=== PATIENT | female | born 1950 | race Caucasian/White ===

== ENCOUNTER 2018-07-29 15:21 | Inpatient (IN) | END 2018-07-30 16:30 | disposition home or self-care (01) | DRG 690 ==

== ENCOUNTER 2018-11-07 09:36 | Observation (INO) | payer MEDICARE ==
[~2018-11-07] VITALS: Ht 144.8 cm; Wt 42.2 kg
[~2018-11-07 09:36] MED LIST: AMLO5TAB4 PO; CIPR500T4 PO; THIA100T10 PO
[2018-11-07] MEDS ORDERED: ALBUTEROL/IPRATROPIUM (NEB) 3 ML AMP HHN STA (09:53)
--- NOTE | 2018-11-07 12:21 | ERD ---
ER Documentation Chief Complaint Chief Complaint sob, [facility] 1 resp tx in field HPI 68-year-old female brought to the emergency department by paramedics for shortness of breath. Patient is an unfortunate homeless 68-year-old female who lives in her car. She was recently hospitalized for COPD exacerbation and shortness of breath. She was discharged from the hospital yesterday but continued to feel short of breath. When she continued to feel short of breath to call the paramedics. I have reviewed the rope cleaner pre-hospital care. Pre-hospital vital signs were reviewed. Pre-hospital diagnostic tests were reviewed. Upon arrival, patient reports no chest pain, fevers, sputum production ROS All systems reviewed and are negative except as per history of present illness. Medications Home Meds Discontinued Scripts Amlodipine Besylate* (Norvasc*) 5 Mg Tablet, 5 MG PO DAILY, #30 TAB Prov:FERRER,BRETT V. BARREL LATHE OPERATOR 07/30/18 Thiamine* (Thiamine*) 100 Mg Tablet, 100 MG PO DAILY, #30 TAB Prov:FERRER,BRETT V. BARREL LATHE OPERATOR 07/30/18 Ciprofloxacin Hcl* (Ciprofloxacin Hcl*) 500 Mg Tablet, 500 MG PO BID for 5 Days, #10 TAB Prov:FERRER,BRETT V. BARREL LATHE OPERATOR 07/30/18 Allergies Allergies: Coded Allergies: Egg Derived (Verified Allergy, Unknown, 07/27/18) egg (Verified Allergy, Unknown, 07/27/18) tomato (Verified Allergy, Unknown, 07/27/18) PMhx/Soc History of Surgery: Yes (liver lac, ovarian cyst) Anesthesia Reaction: No Hx Neurological Disorder: No Hx Respiratory Disorders: Yes (copd) Hx Cardiac Disorders: Yes (htn) Hx Psychiatric Problems: No Hx Miscellaneous Medical Probl: No Hx Alcohol Use: Yes Hx Substance Use: No Hx Tobacco Use: Yes Smoking Status: Current some day smoker FmHx Contributory for chief complaint Physical Exam Vitals Vital Signs Date Temp Pulse Resp B/P (MAP) Pulse Ox O2 O2 Flow FiO2 Time Delivery Rate 11/07/18 98 Room Air 11:21 11/07/18 98.2 72 20 162/74 97 10:08 (103) 11/07/18 75 18 97 21 10:02 Physical Exam GENERAL: Frail, elderly female HEENT: Pupils equal, round, and reactive to light. EOMI. There is no scleral icterus. NECK: C-spine is soft and supple, there is no meningismus. There is no cervical lymphadenopathy. LUNGS: Wheezing bilaterally. Mild tachypnea no retractions HEART: Regular rate and rhythm, no murmurs, clicks, rubs or gallops. ABDOMEN: Soft, non-tender, non-distended. There are bowel sounds in all four quadrants. No rebound or guarding. EXTREMITIES: There is no peripheral cyanosis or edema. No focal swelling or erythema. NEURO: The patient moves all four extremities with 5/5 strength. Cranial nerves II - XII are intact. Normal gait. Alert and oriented SKIN: There is no apparent rash or petechiae. HEME/LYMPHATIC: There is no evidence of excessive bruising or lymphedema. PSYCHIATRIC: The patient does not appear anxious or depressed. Result Diagram: 11/07/18 0840 11/07/18 0840 Results 24 hrs Laboratory Tests Test 11/07/18 08:40 11/07/18 10:50 White Blood Count 15.3 10^3/ul Red Blood Count 4.46 10^6/ul Hemoglobin 13.6 g/dl Hematocrit 41.6 % Mean Corpuscular Volume 93.3 fl Mean Corpuscular Hemoglobin 30.5 pg Mean Corpuscular Hemoglobin Concent 32.7 g/dl Red Cell Distribution Width 13.1 % Platelet Count 309 10^3/UL Mean Platelet Volume 9.9 fl Immature Granulocytes % 1.000 % Neutrophils % 70.6 % Lymphocytes % 20.4 % Monocytes % 7.0 % Eosinophils % 0.9 % Basophils % 0.1 % Nucleated Red Blood Cells % 0.0 /100WBC Immature Granulocytes # 0.160 10^3/ul Neutrophils # 10.8 10^3/ul Lymphocytes # 3.1 10^3/ul Monocytes # 1.1 10^3/ul Eosinophils # 0.1 10^3/ul Basophils # 0.0 10^3/ul Nucleated Red Blood Cells # 0.0 10^3/ul Urine Color STRAW Urine Clarity CLEAR Urine pH 5.0 Urine Specific Price 1.009 Urine Ketones NEGATIVE mg/dL Urine Nitrite NEGATIVE mg/dL Urine Bilirubin NEGATIVE mg/dL Urine Urobilinogen NEGATIVE mg/dL Urine Leukocyte Esterase NEGATIVE Dequan/ul Urine Microscopic RBC 1 /HPF Urine Microscopic WBC 0 /HPF Urine Bacteria FEW /HPF Urine Hemoglobin NEGATIVE mg/dL Urine Glucose NEGATIVE mg/dL Urine Total Protein 1+ mg/dl Sodium Level 140 mmol/L Potassium Level 4.0 mmol/L Chloride Level 107 mmol/L Carbon Dioxide Level 23 mmol/L Anion Gap 10 Blood Urea Nitrogen 47 mg/dl Creatinine 1.11 mg/dl Est Glomerular Filtrat Rate mL/min 49 mL/min Glucose Level 90 mg/dl Calcium Level 9.2 mg/dl Total Bilirubin 0.2 mg/dl Direct Bilirubin 0.00 mg/dl Indirect Bilirubin 0.2 mg/dl Aspartate Amino Transf (AST/SGOT) 82 IU/L Alanine Aminotransferase (ALT/SGPT) 73 IU/L Alkaline Phosphatase 90 IU/L Troponin I 0.026 ng/ml B-Type Natriuretic Peptide 2170 PG/ML Total Protein 7.3 g/dl Albumin 4.2 g/dl Globulin 3.10 g/dl Albumin/Globulin Ratio 1.35 POC Venous Lactate 1.2 mmol/L Current Medications Medications Dose Sig/[place] Start Time Status Last (Trade) Ordered Route PRN Stop Time Admin Dose Reason Admin Albuterol/ 3 ml ONCE STAT 11/07/18 DC 11/07/18 Ipratropium HHN 09:53 11/07/18 10:01 (Duoneb) 09:54 Procedures/MDM Patient was taken to a room, seen and evaluated. Comfort measures were initiated. Diagnostic tests were ordered and reviewed. 3 LEAD RHYTHM STRIP: Normal sinus rhythm without ectopy EK lead EKG reviewed by myself: Normal Sinus Rhythm Normal [place] and intervals No ST elevation, depression, or T wave inversion. Nonspecific ST and T wave changes without ST elevation Impression: Nonspecific EKG RADIOLOGY: Reviewed with the radiologist CONSULTATION: Hospitalist was notified for admission REEVALUATION: Breathing treatments, her wheezing improved. Diagnostic tests were evaluated and discussed with her and arrangements were made for admission MEDICAL DECISION MAKIN-year-old female presents the emergency department with continued shortness of breath despite recent inpatient care. Given her lack of outpatient follow-up, her inability to take care of this is an outpatient after her previous hospitalization and her homeless status, she will be admitted to the hospital for supportive measures further bronchodilator treatment further evaluation. She will require social media content manager intervention as well. Departure Diagnosis: Primary Impression: COPD exacerbation Condition: SALUD Schultz Nov 07, 2018 12:20
[2018-11-07 14:44] VITALS: BP 150/68; PULSE 74; RESP 18
--- NOTE | 2018-11-07 14:44 | HP ---
Date/Time of Note Date/Time of Note DATE: 11/07/18 TIME: 14:39 Assessment/Plan VTE Prophylaxis SCD applied (from Nsg): Yes Pharmacological prophylaxis: NA/contraindicated Pharm contraindication: low risk/ambulating Lines/Catheters IV Catheter Type (from Nrsg): Saline Lock Assessment/Plan Hospital Course SUBJECTIVE: Lying in bed. On room air, no respiratory distress. No cough. OBJECTIVE: Vital signs-see below PHYSICAL EXAM: Constitutional: Well-developed, adequately built, lying in bed comfortably. Psych: nl mood/affect, no complaints Head: atraumatic, normocephalic Eyes: nl conjunctiva, nl sclera ENMT: mucosa pink and moist, nl external ears & nose Neck: non-tender, supple Respiratory: clear to auscultation, normal air movement Cardiovascular: nl pulses, regular rate and rhythm Gastrointestinal: non-tender, soft, bowel sounds active in all 4 quadrants. Musculoskeletal/extremities: nl extremities to inspection, motor strength equal bilaterally, no focal deficit. Normal pulses,no cyanosis, no edema. Neurological: Alert oriented 3,nl speech, nl strength Skin: nl turgor ASSESSMENT/PLAN: 68-year-old homeless female with a history of hypertension, COPD, current every day smoking, who was apparently discharged from outside hospital yesterday after treated for COPD, presented to our ER stating she has not felt any better with her cough or breathing. 1. Upper respiratory infection -Clinically stable. -We will treat with p.o. Levaquin, bronchodilators. 2. COPD -Currently stable. -We will treat with [id number] bronchodilators, PO prednisone short course (wheezes+carl), supplemental oxygen if indicated. -Counseled on smoking cessation 3. Leukocytosis likely secondary to #1 versus possible steroid induced as she may had received steroids in the other facility for copd tx. -Again, patient will be treated with a fluoroquinolone. 4. Hypertension -Last time patient was discharged on amlodipine which we will continue. 5. Tobacco use -Counseled on cessation 6. Homelessness -landing worker to see patient. 7. Alcoholic liver cirrhosis. -No acute issues. DVT prophylaxis: SCDs PUD prophylaxis: Not indicated Diet: Regular CODE STATUS: Full code Rest of the management depend on hospital course. Approximately 60 m spent on this history and physical. Patient has an evaluation with Result Diagram: 11/07/18 0840 11/07/18 0840 Results 24hrs Laboratory Tests Test 11/07/18 08:40 11/07/18 10:50 White Blood Count 15.3 #H Red Blood Count 4.46 Hemoglobin 13.6 Hematocrit 41.6 Mean Corpuscular Volume 93.3 Mean Corpuscular Hemoglobin 30.5 Mean Corpuscular Hemoglobin Concent 32.7 Red Cell Distribution Width 13.1 Platelet Count 309 # Mean Platelet Volume 9.9 Immature Granulocytes % 1.000 H Neutrophils % 70.6 Lymphocytes % 20.4 Monocytes % 7.0 Eosinophils % 0.9 Basophils % 0.1 Nucleated Red Blood Cells % 0.0 Immature Granulocytes # 0.160 H Neutrophils # 10.8 H Lymphocytes # 3.1 H Monocytes # 1.1 H Eosinophils # 0.1 Basophils # 0.0 Nucleated Red Blood Cells # 0.0 Urine Color STRAW Urine Clarity CLEAR Urine pH 5.0 Urine Specific Sebastian 1.009 Urine Ketones NEGATIVE Urine Nitrite NEGATIVE Urine Bilirubin NEGATIVE Urine Urobilinogen NEGATIVE Urine Leukocyte Esterase NEGATIVE Urine Microscopic RBC 1 Urine Microscopic WBC 0 Urine Bacteria FEW A Urine Hemoglobin NEGATIVE Urine Glucose NEGATIVE Urine Total Protein 1+ H Sodium Level 140 Potassium Level 4.0 Chloride Level 107 Carbon Dioxide Level 23 Anion Gap 10 Blood Urea Nitrogen 47 H Creatinine 1.11 H Est Glomerular Filtrat Rate mL/min 49 L Glucose Level 90 Calcium Level 9.2 Total Bilirubin 0.2 Direct Bilirubin 0.00 Indirect Bilirubin 0.2 Aspartate Amino Transf (AST/SGOT) 82 H Alanine Aminotransferase (ALT/SGPT) 73 H Alkaline Phosphatase 90 Troponin I 0.026 B-Type Natriuretic Peptide 2170 H Total Protein 7.3 Albumin 4.2 Globulin 3.10 Albumin/Globulin Ratio 1.35 POC Venous Lactate 1.2 HPI/ROS Admit Date/Time Admit Date/Time Nov 07, 2018 at 12:34 Hx of Present Illness This is a 68-year-old homeless female with a history of tobacco use, alcoholic liver cirrhosis, hypertension, COPD, who was apparently discharged from outside hospital yesterday where she was treated for COPD, came to [facility] ER room via ambulance stating that she still feels short of breath and cough. Patient denies chest pain, palpitation, nausea, vomiting, diaphoresis, numbness, tingling, hemoptysis, loss of consciousness, dizziness, speech difficulties, vision changes, fever, chills, diarrhea or other constitutional symptoms. In the emergency room, initial labs showed white count 15,300, creatinine 1.11. Vital signs with blood pressure 162/74. Chest x-ray showed no evidence of infiltrates or any acute disease. In ER, patient was given DuoNeb and was admitted. ROS A 12 point review of system was assessed and is negative other than what is mentioned in the HPI. PMH/Family/Social Past Medical History See HPI Medications Current Medications IV Flush (NS 3 ml) 3 ml PER PROTOCOL IV ; Start 11/07/18 at 15:00; Status UNV Ondansetron HCl (Zofran Inj) 4 mg Q6H PRN IV NAUSEA/VOMITING; Start 11/07/18 at 15:00; Status UNV Acetaminophen (Tylenol Tab) 650 mg Q6H PRN PO .PAIN 1-3 OR TEMP; Start 11/07/18 at 15:00; Status UNV Levofloxacin (Levaquin) 500 mg DAILY@06 PO ; Start 11/07/18 at 15:00; Status UNV Albuterol/ Ipratropium (Duoneb) 3 ml Q4HWA RESP THERAPY HHN ; Start 11/07/18 at 17:00; Status UNV Guaifenesin/ Codeine Phosphate (Robitussin Ac Liquid Cup) 10 ml Q4H PRN PO cough; Start 11/07/18 at 15:00; Status UNV Coded Allergies: Egg Derived (Verified Allergy, Unknown, 11/07/18) egg (Verified Allergy, Unknown, 11/07/18) tomato (Verified Allergy, Unknown, 11/07/18) Past Surgical History Noncontributory Family History Significant Family History: no pertinent family hx Social History Current every day smoker. Drinks 1 glass of wine every night. Denied illicit drug use. Smoking Status: Current some day smoker Exam/Review of Systems Vital Signs Vitals Vital Signs Date Temp Pulse Resp B/P (MAP) Pulse Ox O2 O2 Flow FiO2 Time Delivery Rate 11/07/18 98.2 55 20 149/74 99 Room Air 13:54 (99) 11/07/18 21 10:02 BRETT FERRER NP Nov 07, 2018 14:44
[2018-11-07 14:45] VITALS: Ht 144.8 cm; Wt 42.2 kg
[2018-11-07] MEDS ORDERED: NACL 0.9% 3 ML SYG IV SCH (15:00)
[2018-11-07] MEDS ORDERED: ACETAMINOPHEN 325 MG TAB PO PRN (15:00)
[2018-11-07] MEDS ORDERED: GUAIFENESIN/CODEINE 5ML CUP PO PRN (15:00)
[2018-11-07] MEDS ORDERED: ONDANSETRON 4 MG INJ IV PRN (15:00)
[2018-11-07] MEDS: predniSONE 20 MG TAB PO SCH (17:08)
[2018-11-07] MEDS: LEVOFLOXACIN 500 MG TAB PO SCH (17:08)
[2018-11-07] MEDS: ALBUTEROL/IPRATROPIUM (NEB) 3 ML AMP HHN SCH ×2 (17:10→21:49)
[2018-11-07 17:39] VITALS: BP 135/62; PULSE 58; RESP 18
[2018-11-07 19:39] VITALS: BP 138/64; PULSE 80; RESP 18
[2018-11-08 01:41] VITALS: BP 158/79; PULSE 96; RESP 18
[2018-11-08] MEDS: LEVOFLOXACIN 500 MG TAB PO SCH (06:16)
[2018-11-08 07:43] VITALS: BP 150/72; PULSE 75; RESP 18
[2018-11-08] MEDS: predniSONE 20 MG TAB PO SCH (08:18)
[2018-11-08] MEDS: ALBUTEROL/IPRATROPIUM (NEB) 3 ML AMP HHN SCH ×2 (09:36→13:08)
--- NOTE | 2018-11-08 11:08 | PDOCDIS ---
Discharge Instructions CONDITION [id number] Patient Condition: [id number] Stable HOME CARE INSTRUCTIONS: [id number] Diet Instructions: [id number] Regular FOLLOW UP/APPOINTMENTS Follow-up Plan With primary care physician in 1 week. You need to check your kidney function in 1 week. BRETT FERRER NP Nov 08, 2018 11:08
[2018-11-08] MEDS ORDERED: TIOT18CA INHALATION (11:10)
[2018-11-08] MEDS ORDERED: PRED10TA PO (11:10)
[2018-11-08] MEDS ORDERED: AZIT500T2 PO (11:10)
[2018-11-08] MEDS ORDERED: ALBU8.5H8 INH (11:10)
--- NOTE | 2018-11-08 11:18 | DS ---
Date/Time of Note Date/Time of Note DATE: 11/08/18 TIME: 11:16 Discharge Summary Admission/Discharge Info Admit Date/Time Nov 07, 2018 at 12:34 Discharge Date/Time Discharge Diagnosis SUBJECTIVE: Lying in bed. On room air, no respiratory distress. No cough. 1. Upper respiratory infection 2. COPD 3. Hypertension 4. Tobacco use 5. Homelessness 6. Alcoholic liver cirrhosis. Patient Condition: Stable Procedures 11/07/2018. Chest x-ray. IMPRESSION: No acute disease. Calcified aorta consistent with atherosclerotic disease. Hx of Present Illness This is a 68-year-old homeless female with a history of tobacco use, alcoholic liver cirrhosis, hypertension, COPD, who was apparently discharged from outside hospital yesterday where she was treated for COPD, came to [facility] ER room via ambulance stating that she still feels short of breath and cough. Patient denies chest pain, palpitation, nausea, vomiting, diaphoresis, numbness, tingling, hemoptysis, loss of consciousness, dizziness, speech difficulties, vision changes, fever, chills, diarrhea or other constitutional symptoms. In the emergency room, initial labs showed white count 15,300, creatinine 1.11. Vital signs with blood pressure 162/74. Chest x-ray showed no evidence of infiltrates or any acute disease. In ER, patient was given DuoNeb and was admitted. Hospital Course 68-year-old homeless female with a history of hypertension, COPD, current every day smoking, who was apparently discharged from outside hospital yesterday after treated for COPD, presented to our ER stating she has not felt any better with her cough or breathing. Patient was treated for a possible upper respiratory infection. She was also given a low-dose steroids. Her symptoms resolved. Chest x-ray with no evidence of pneumonia or other acute cardiopulmonary disease. Patient is now very eager to be discharged. I have also prescribed her with a COPD management regimen with NILESH PRN, ICH. She was given prescription for a Z-Francisco and tapered steroid dose. Patient was also noted with acute kidney injury likely hemodynamics. We also stop Levaquin to avoid further kidney injury. She was treated with IV fluids. As patient did not want to repeat her renal function and wanted to be discharged, we will discharge her with outpatient primary care follow-up. She was instructed to repeat her renal function in a week. Patient verbalized understanding. She was counseled on cessation of tobacco products and alcohol. overhead line worker consult was ordered as she is also homeless. Patient opted to go back to her current living situation. Approximately 60 m spent on coordinating the discharge on this patient. Patient was seen in collaboration with . Home Meds Active Scripts Tiotropium [place]* (Spiriva*) 18 Mcg Cap.w.dev, 1 CAP INHALATION DAILY, #30 CAP Prov:FERRERABHISHEKA V. SALES AND MARKETING EXECUTIVE 11/08/18 Albuterol Sulfate* (Proair HFA*) 8.5 Gm Hfa.aer.ad, 2 PUFF INH Q4H PRN for WHEEZING AND SOB, #1 INHALER Prov:ABHISHEK FERRERA V. SALES AND MARKETING EXECUTIVE 11/08/18 Prednisone* (Prednisone*) 10 Mg Tab, 10 MG PO DAILY, #3 TAB TAKE 2 PILLS ON DAY 1, TAKE 1 PILL ON DAY 2 AND THEN STOP Prov:FERRERABHISHEKA V. SALES AND MARKETING EXECUTIVE 11/08/18 Azithromycin* (Zithromax* Tri-Francisco) 500 Mg Tablet, 500 MG PO DAILY for 3 Days, #1 DOSE-PACK Prov:BRETT FERRER V. SALES AND MARKETING EXECUTIVE 11/08/18 Discontinued Scripts Amlodipine Besylate* (Norvasc*) 5 Mg Tablet, 5 MG PO DAILY, #30 TAB Prov:FERRERABHISHEKA V. SALES AND MARKETING EXECUTIVE 07/30/18 Thiamine* (Thiamine*) 100 Mg Tablet, 100 MG PO DAILY, #30 TAB Prov:FERRER,BRETT V. SALES AND MARKETING EXECUTIVE 07/30/18 Ciprofloxacin Hcl* (Ciprofloxacin Hcl*) 500 Mg Tablet, 500 MG PO BID for 5 Days, #10 TAB Prov:BRETT FERRER V. SALES AND MARKETING EXECUTIVE 07/30/18 Follow-up Plan With primary care physician in 1 week. You need to check your kidney function in 1 week. Primary Care Provider Not On Staff Doctor Pending Labs Laboratory Tests Test 11/08/18 05:31 White Blood Count 7.3 10^3/ul (4.8-10.8) Red Blood Count 3.26 10^6/ul (4.20-5.40) Hemoglobin 10.2 g/dl (12.0-16.0) Hematocrit 30.6 % (37.0-47.0) Mean Corpuscular Volume 93.9 fl (82.0-101.0) Mean Corpuscular Hemoglobin 31.3 pg (29.0-33.0) Mean Corpuscular Hemoglobin Concent 33.3 g/dl (32.0-37.0) Red Cell Distribution Width 13.0 % (11.5-14.5) Platelet Count 231 10^3/UL (140-415) Mean Platelet Volume 10.3 fl (7.4-10.4) Immature Granulocytes % 0.800 % (0.001-0.429) Neutrophils % 84.0 % (39.0-77.0) Lymphocytes % 10.9 % (15.0-51.0) Monocytes % 4.2 % (0.0-11.0) Eosinophils % 0.0 % (0.0-7.0) Basophils % 0.1 % (0.0-2.0) Nucleated Red Blood Cells % 0.0 /100WBC (0.0-0.0) Immature Granulocytes # 0.060 10^3/ul (0.0-0.031) Neutrophils # 6.1 10^3/ul (1.6-7.5) Lymphocytes # 0.8 10^3/ul (0.8-2.9) Monocytes # 0.3 10^3/ul (0.3-0.9) Eosinophils # 0.0 10^3/ul (0.0-0.5) Basophils # 0.0 10^3/ul (0.0-0.1) Nucleated Red Blood Cells # 0.0 10^3/ul (0.0-0.0) Sodium Level 139 mmol/L (135-144) Potassium Level 4.3 mmol/L (3.5-5.1) Chloride Level 108 mmol/L (97-110) Carbon Dioxide Level 21 mmol/L (21-31) Anion Gap 10 (5-13) Blood Urea Nitrogen 46 mg/dl (7-20) Creatinine 1.44 mg/dl (0.44-1.00) Est Glomerular Filtrat Rate mL/min 36 mL/min (>60) Glucose Level 123 mg/dl (70-220) Hemoglobin A1c 6.0 % (0-5.9) Calcium Level 8.4 mg/dl (8.4-10.2) Phosphorus Level 4.8 mg/dl (2.5-4.9) Magnesium Level 1.8 mg/dl (1.7-2.5) Total Bilirubin 0.1 mg/dl (0.2-1.3) Direct Bilirubin 0.00 mg/dl (0.00-0.20) Indirect Bilirubin 0.1 mg/dl (0-1.1) Aspartate Amino Transf (AST/SGOT) 33 IU/L (15-46) Alanine Aminotransferase (ALT/SGPT) 63 IU/L (13-69) Alkaline Phosphatase 61 IU/L (42-121) Total Protein 5.9 g/dl (6.1-8.1) Albumin 3.2 g/dl (3.3-4.9) Globulin 2.70 g/dl (1.3-3.2) Albumin/Globulin Ratio 1.18 Triglycerides Level 109 mg/dl (0-149) Cholesterol Level 147 mg/dl (100-200) LDL Cholesterol, Calculated 53 mg/dl HDL Cholesterol 72 mg/dl (33-92) Cholesterol/HDL Ratio 2.0 RATIO Microbiology Date/Time Source Procedure Growth Status 11/07/18 15:00 Nares MRSA Screen - Preliminary Screening in process Resulted BRETT FERRER NP Nov 08, 2018 11:18
[2018-11-08] MEDS ORDERED: SOD CHLORIDE 0.9% 500 ML IV ONE (11:30)
[2018-11-08 13:33] VITALS: BP 150/72; PULSE 93; RESP 18
[2018-11-09] MEDS ORDERED: AZITHROMYCIN 250 MG TAB PO SCH (09:00)
== END 2018-11-08 14:40 | disposition home or self-care (01) ==
LOC: E/R 09:36 → 2NE 12:34
PROVIDERS: ADMIT Family Medicine; ATTEND Family Medicine
DX: J06.9 Acute upper respiratory infection, unspecified (principal); J44.1 Chronic obstructive pulmonary disease with (acute) exacerbation; I10 Essential (primary) hypertension; Z72.0 Tobacco use; K70.30 Alcoholic cirrhosis of liver without ascites; Z59.0 Homelessness
CPT/HCPCS: 36415; 71045; 80053; 80061; 81001; 83036; 83605; 83735; 83880; 84100; 84484; 85025; 87040; 87081; 93005; 94640; 94664; 99285; G0378; J7040; J7512

== ENCOUNTER 2018-11-13 17:01 | Emergency (ER) | payer MEDICARE ==
[~2018-11-13] VITALS: Ht 152.4 cm; Wt 43.2 kg
[~2018-11-13 17:01] MED LIST changes: +ALBU8.5H8 INH; -AMLO5TAB4 PO; +AZIT500T2 PO; -CIPR500T4 PO; +PRED10TA PO; -THIA100T10 PO; +TIOT18CA INHALATION
[2018-11-13] MEDS ORDERED: ALBUTEROL 0.5% (NEB) 2.5 MG/0.5 ML AMP INH STA (17:05)
[2018-11-13] MEDS ORDERED: IPRATROPIUM (NEB) 0.5 MG/2.5 ML AMP INH STA (17:05)
[2018-11-13] MEDS ORDERED: SOD CHLORIDE 0.9% 1,000 ML IV STA (17:05)
[2018-11-13] MEDS ORDERED: DEXAMETHASONE 10 MG/ML 1 ML INJ IV STA (17:05)
[2018-11-13 17:11] VITALS: Ht 152.4 cm; Wt 43.2 kg
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
[2018-11-13] MEDS ORDERED: ALBUTEROL HFA 8 GM INHALER INH STA (19:20)
[2018-11-13] MEDS ORDERED: TIOTROPIUM 18 MCG CAPSULE INHA DEV INH STA (19:20)
[2018-11-13] MEDS ORDERED: DOXY100T20 PO (19:22)
[2018-11-13] MEDS ORDERED: DOXYCYCLINE 100 MG TAB PO ONE (19:30)
[2018-11-13 20:10] VITALS: BP 129/67; PULSE 91; RESP 22
== END 2018-11-13 20:46 | disposition home or self-care (01) ==
LOC: E/R 17:01
DX: J44.1 Chronic obstructive pulmonary disease with (acute) exacerbation (principal); R40.2142 Coma scale, eyes open, spontaneous, at arrival to emergency department; R40.2362 Coma scale, best motor response, obeys commands, at arrival to emergency department; R40.2252 Coma scale, best verbal response, oriented, at arrival to emergency department; I10 Essential (primary) hypertension; F17.210 Nicotine dependence, cigarettes, uncomplicated; Z59.0 Homelessness
CPT/HCPCS: 71045; 80048; 84484; 85025; 93005; 94644; 96374; 99285; J1100; J7030

== ENCOUNTER 2018-11-14 07:55 | Emergency (ER) | payer MEDICARE ==
[~2018-11-14] VITALS: Ht 144.8 cm; Wt 43.0 kg
[~2018-11-14 07:55] MED LIST changes: -ALBU8.5H8 INH; -AZIT500T2 PO; +DOXY100T20 PO; -PRED10TA PO; -TIOT18CA INHALATION
[2018-11-14 07:58] VITALS: Ht 144.8 cm; Wt 43.0 kg
--- NOTE | 2018-11-14 08:17 | ERD ---
ER Documentation Chief Complaint Chief Complaint right arm weakness x 30 minutes HPI 68-year-old female presents emergency department complaining of right hand weakness. Patient was recently admitted to the hospital for COPD exacerbation and discharged. She was then seen again yesterday in our emergency department essentially for social reasons. Upon discharge, she apparently spoke with our social work associate, who is helping arrange placement, but she has been unable to find a place to live. She essentially spent the night in our waiting room. This morning, she states that she is having right hand weakness. She reports no headache, difficulty speaking or any other neurologic symptoms. She states that she has had this previously on and off and that this is not necessarily a new symptom. ROS All systems reviewed and are negative except as per history of present illness. Medications Home Meds Active Scripts Doxycycline Hyclate* (Doxycycline Hyclate*) 100 Mg Tablet.dr, 100 MG PO BID for 7 Days, TAB Prov:DEANNA MONROE MD 11/13/18 Discontinued Scripts Tiotropium [place]* (Spiriva*) 18 Mcg Cap.w.dev, 1 CAP INHALATION DAILY, #30 CAP Prov:BRETT FERRER NP 11/08/18 Albuterol Sulfate* (Proair HFA*) 8.5 Gm Hfa.aer.ad, 2 PUFF INH Q4H PRN for WHEEZING AND SOB, #1 INHALER Prov:BRETT FERRER NP 11/08/18 Prednisone* (Prednisone*) 10 Mg Tab, 10 MG PO DAILY, #3 TAB TAKE 2 PILLS ON DAY 1, TAKE 1 PILL ON DAY 2 AND THEN STOP Prov:BRETT FERRER NP 11/08/18 Azithromycin* (Zithromax* Tri-[place]) 500 Mg Tablet, 500 MG PO DAILY for 3 Days, #1 DOSE-PACK Prov:BRETT FERRER NP 11/08/18 Amlodipine Besylate* (Norvasc*) 5 Mg Tablet, 5 MG PO DAILY, #30 TAB Prov:BRETT FERRER NP 07/30/18 Thiamine* (Thiamine*) 100 Mg Tablet, 100 MG PO DAILY, #30 TAB Prov:BRETT FERRER V. SIGNAL INTELLIGENCE ANALYST 07/30/18 Ciprofloxacin Hcl* (Ciprofloxacin Hcl*) 500 Mg Tablet, 500 MG PO BID for 5 Days, #10 TAB Prov:BRETT FERRER NP 07/30/18 Allergies Allergies: Coded Allergies: Egg Derived (Verified Allergy, Unknown, 11/13/18) egg (Verified Allergy, Unknown, 11/13/18) tomato (Verified Allergy, Unknown, 11/13/18) PMhx/Soc History of Surgery: Yes (Liver Laceration, Ovarian Cyst) Anesthesia Reaction: No Hx Neurological Disorder: No Hx Respiratory Disorders: Yes (COPD) Hx Cardiac Disorders: Yes (HTN) Hx Psychiatric Problems: No Hx Miscellaneous Medical Probl: No Hx Alcohol Use: Yes ( wine ) Hx Substance Use: No Hx Tobacco Use: Yes Physical Exam Vitals Vital Signs Date Temp Pulse Resp B/P (MAP) Pulse Ox O2 O2 Flow FiO2 Time Delivery Rate 11/14/18 97.6 78 18 182/98 100 07:58 (126) Physical Exam GENERAL: Frail, disheveled elderly female in no distress HEENT: Pupils equal, round, and reactive to light. EOMI. There is no scleral icterus. NECK: C-spine is soft and supple, there is no meningismus. There is no cervical lymphadenopathy. LUNGS: Clear to auscultation bilaterally. There are no rales, wheezes or rhonchi. HEART: Regular rate and rhythm, no murmurs, clicks, rubs or gallops. ABDOMEN: Soft, non-tender, non-distended. There are bowel sounds in all four quadrants. No rebound or guarding. EXTREMITIES: There is no peripheral cyanosis or edema. No focal swelling or erythema. NEURO: Awake, alert, oriented. Normal speech and comprehension. Pupils are midrange, equal round and reactive to light, extra commands are intact, face symmetric, tongue is midline. Motor strength is 5 out of 5 throughout all extremities except for the distal right hand which demonstrates generalized weak ness in all 3 motor groups of the right hand. Sensory examination is completely nonfocal. She has a normal gait and balance. SKIN: There is no apparent rash or petechiae. HEME/LYMPHATIC: There is no evidence of excessive bruising or lymphedema. PSYCHIATRIC: The patient does not appear anxious or depressed. Procedures/MDM Patient was taken to a room, seen and examined Medical decision makin-year-old essentially homeless female presents to the emergency department with right hand weakness that appears to be secondary to peripheral neuropathy. Her symptoms are not consistent with a central neurologic cause including no evidence of stroke. This peripheral neuropathy seems to come and go and is likely related to her overall social situation. Patient will be discharged according to hospital policy with homeless discharge procedure pending social work associate involvement. From a medical standpoint she is clinically stable and appropriate for discharge. Departure Diagnosis: Primary Impression: Homeless Condition: Stable Patient Instructions: COPD: Using Inhalers Additional Instructions: Please speak with the social work associate SALUD WANG Nov 14, 2018 08:17
[2018-11-14 10:13] VITALS: BP 158/85; PULSE 78; RESP 18
== END 2018-11-14 15:26 | disposition home or self-care (01) ==
LOC: E/R 07:55
DX: Z59.0 Homelessness (principal); I10 Essential (primary) hypertension; J44.9 Chronic obstructive pulmonary disease, unspecified; Z87.891 Personal history of nicotine dependence
CPT/HCPCS: 99282

== ENCOUNTER 2019-01-22 10:43 | Emergency (ER) | payer MEDICARE ==
[~2019-01-22] VITALS: Ht 132.1 cm; Wt 37.6 kg
[2019-01-22 10:45] VITALS: Ht 132.1 cm; Wt 37.6 kg
[2019-01-22] MEDS ORDERED: SOD CHLORIDE 0.9% 1,000 ML IV STA (13:25)
[2019-01-22] MEDS ORDERED: CEFTRIAXONE 1 GM/50 ML (PMX) 50 ML IVPB ONE (15:30)
[2019-01-22 17:14] VITALS: BP 162/99
[2019-01-22] MEDS ORDERED: NITR-58 PO (18:05)
--- NOTE | 2019-01-22 18:13 | ERD ---
ER Documentation Chief Complaint Chief Complaint ABDOMINAL PAIN, DIARRHEA STARTED THIS MORNING ;UNKEMPT HPI 68-year-old homeless male female with a history of multiple abdominal surgeries presenting with abdominal pain and diarrhea that started this morning. She denies any blood in her stool. No nausea or vomiting. No dysuria. No fevers or chills. No alleviating or exacerbating factors. She is complaining of cramping lower abdominal pain, mostly in the left lower quadrant, somewhat improved currently. Rates her pain as a 4 out of 10. Nonradiating. ROS All systems reviewed and are negative except as per history of present illness. Medications Home Meds Active Scripts Nitrofurantoin Monohyd Macrocr* (Macrobid*) 100 Mg Capsr, 100 MG PO BID for 14 Days, CAP Prov:EULOGIO AFLCON MD 01/22/19 Discontinued Scripts Doxycycline Hyclate* (Doxycycline Hyclate*) 100 Mg Tablet.dr, 100 MG PO BID for 7 Days, TAB Prov:DEANNA MONROE MD 11/13/18 Allergies Allergies: Coded Allergies: Egg Derived (Verified Allergy, Unknown, 01/22/19) egg (Verified Allergy, Unknown, 01/22/19) tomato (Verified Allergy, Unknown, 01/22/19) PMhx/Soc History of Surgery: Yes (Liver Laceration, Ovarian Cyst) Anesthesia Reaction: No Hx Neurological Disorder: No Hx Respiratory Disorders: Yes (COPD) Hx Cardiac Disorders: Yes (HTN) Hx Psychiatric Problems: No Hx Miscellaneous Medical Probl: No Hx Alcohol Use: Yes ( wine ) Hx Substance Use: No Hx Tobacco Use: Yes Smoking Status: Never smoker FmHx Family History: No diabetes Physical Exam Vitals Vital Signs Date Temp Pulse Resp B/P (MAP) Pulse Ox O2 O2 Flow FiO2 Time Delivery Rate 01/22/19 98.9 8 19 162/99 98 Room Air 17:14 (120) 01/22/19 89 18 180/94 99 Room Air 15:10 (122) 01/22/19 99.3 85 19 186/84 98 10:45 (118) Physical Exam Const: No acute distress, unkempt, smells of urine, dirty clothing Head: Atraumatic Eyes: Normal Conjunctiva ENT: Normal External Ears, Nose and Mouth. Neck: Full range of motion. No meningismus. Resp: Clear to auscultation bilaterally Cardio: Regular rate and rhythm, no murmurs Abd: Multiple surgical scars noted. Soft, non tender, non distended distended, mild lower abdominal tenderness to palpation. Normal bowel sounds Skin: No petechiae or rashes Back: No midline or flank tenderness Ext: No cyanosis, or edema Neur: Awake and alert Psych: Normal Mood and Affect Result Diagram: 01/22/19 1347 01/22/19 1347 Results 24 hrs Laboratory Tests Test 01/22/19 13:47 01/22/19 14:39 White Blood Count 9.8 10^3/ul Red Blood Count 3.91 10^6/ul Hemoglobin 12.0 g/dl Hematocrit 37.8 % Mean Corpuscular Volume 96.7 fl Mean Corpuscular Hemoglobin 30.7 pg Mean Corpuscular Hemoglobin Concent 31.7 g/dl Red Cell Distribution Width 13.0 % Platelet Count 284 10^3/UL Mean Platelet Volume 9.3 fl Immature Granulocytes % 0.400 % Neutrophils % 65.4 % Lymphocytes % 24.4 % Monocytes % 7.4 % Eosinophils % 1.5 % Basophils % 0.9 % Nucleated Red Blood Cells % 0.0 /100WBC Immature Granulocytes # 0.040 10^3/ul Neutrophils # 6.4 10^3/ul Lymphocytes # 2.4 10^3/ul Monocytes # 0.7 10^3/ul Eosinophils # 0.2 10^3/ul Basophils # 0.1 10^3/ul Nucleated Red Blood Cells # 0.0 10^3/ul Sodium Level 143 mmol/L Potassium Level 4.7 mmol/L Chloride Level 112 mmol/L Carbon Dioxide Level 24 mmol/L Anion Gap 7 Blood Urea Nitrogen 26 mg/dl Creatinine 1.25 mg/dl Est Glomerular Filtrat Rate mL/min 42 mL/min Glucose Level 80 mg/dl Calcium Level 8.7 mg/dl Total Bilirubin 0.3 mg/dl Direct Bilirubin 0.00 mg/dl Indirect Bilirubin 0.3 mg/dl Aspartate Amino Transf (AST/SGOT) 32 IU/L Alanine Aminotransferase (ALT/SGPT) 33 IU/L Alkaline Phosphatase 111 IU/L Total Protein 7.5 g/dl Albumin 4.0 g/dl Globulin 3.50 g/dl Albumin/Globulin Ratio 1.14 Lipase 22 U/L Urine Color INGRID Urine Clarity TURBID Urine pH 5.0 Urine Specific [place] 1.013 Urine Ketones NEGATIVE mg/dL Urine Nitrite NEGATIVE mg/dL Urine Bilirubin NEGATIVE mg/dL Urine Urobilinogen NEGATIVE mg/dL Urine Leukocyte Esterase 1+ Dequan/ul Urine Microscopic RBC 32 /HPF Urine Microscopic WBC 74 /HPF Urine Squamous Epithelial Cells FEW /HPF Urine Bacteria MODERATE /HPF Urine Hemoglobin NEGATIVE mg/dL Urine Glucose 1+ mg/dL Urine Total Protein 2+ mg/dl Current Medications Medications Dose Sig/Cachorro Start Time Status Last (Trade) Ordered Route PRN Stop Time Admin Dose Reason Admin Sodium 1,000 ml @ Q1H STAT 01/22/19 DC 01/22/19 Chloride 1,000 mls/hr IV 13:25 13:51 01/22/19 14:24 Ceftriaxone 50 ml @ ONCE ONCE 01/22/19 DC 01/22/19 Sodium 100 mls/hr IVPB 15:30 15:49 01/22/19 15:59 Procedures/MDM EMERGENT LABS AND DIAGNOSTIC STUDIES: Lab Results above were reviewed and interpreted by me. CBC: no anemia or evidence of infection CMP: Elevated BUN and creatinine, consistent with chronic kidney disease. No evidence of clinically significant electrolyte abnormality, acidosis, hypoglycemia, liver disease, or biliary obstruction UA: Consistent with infection Radiology Results as interpreted by Radiology below were reviewed by Marielena Falcon MD: CT abdomen and pelvis shows evidence of constipation but no acute emergent abdominal pathology Initial Nursing notes reviewed. Previous Medical Records requested via the Electronic Health Record. EMERGENCY DEPARTMENT COURSE / MEDICAL DECISION MAKING: Patient is presenting with abdominal pain, likely secondary to diarrhea. I do not suspect infectious diarrhea. Vitals are stable. She does have evidence of UTI, for which ceftriaxone was given. She was given IV hydration as well. I have provided a medical screening exam and evaluation. Referral to [facility] for follow up is not indicated. The patient is clinically stable for discharge. I have communicated after-visit instructions and plan to the patient. Because patient has been identified as without residence, the hospital policy and process for discharge requirements have been initiated by appropriate hospital staff. However the patient does not want prison as she lives in her car and she is very happy with this. She refused any help with placement. Patient's blood pressure was elevated (>120/80) but appears stable without evidence of hypertensive emergency or urgency. The patient was counseled about the risks of hypertension and urged to pursue outpatient monitoring and therapy within a week with their primary care physician. Departure Diagnosis: Primary Impression: Abdominal pain Abdominal location: generalized Qualified Codes: R10.84 - Generalized abdominal pain Additional Impression: UTI (urinary tract infection) Urinary tract infection type: site unspecified Hematuria presence: without hematuria Qualified Codes: N39.0 - Urinary tract infection, site not specified Condition: Stable Patient Instructions: Abdominal Pain, Understanding Urinary Tract Infections (UTIs), Constipation (Adult) Referrals: COMMUNITY CLINICS YOU HAVE RECEIVED A MEDICAL SCREENING EXAM AND THE RESULTS INDICATE THAT YOU DO NOT HAVE A CONDITION THAT REQUIRES URGENT TREATMENT IN THE EMERGENCY DEPARTMENT. FURTHER EVALUATION AND TREATMENT OF YOUR CONDITION CAN WAIT UNTIL YOU ARE SEEN IN YOUR DOCTORS OFFICE WITHIN THE NEXT 1-2 DAYS. IT IS YOUR RESPONSIBILITY TO MAKE AN APPOINTMENT FOR FOLOW-UP CARE. IF YOU HAVE A PRIMARY DOCTOR --you should call your primary doctor and schedule an appointment IF YOU DO NOT HAVE A PRIMARY DOCTOR YOU CAN CALL OUR PHYSICIAN REFERRAL HOTLINE AT IF YOU CAN NOT AFFORD TO SEE A PHYSICIAN YOU CAN CHOSE FROM THE FOLLOWING [facility] [address] [facility] [facility] [address] [facility] [facility] [address] [facility] [address] [facility] [address] [facility]. [facility]. [address] MD January 22, 2019 18:13
[2019-01-22 19:47] VITALS: PULSE 94; RESP 20
== END 2019-01-22 19:49 | disposition home or self-care (01) ==
LOC: E/R 10:43
DX: N39.0 Urinary tract infection, site not specified (principal); I10 Essential (primary) hypertension; J44.9 Chronic obstructive pulmonary disease, unspecified; Z87.891 Personal history of nicotine dependence
CPT/HCPCS: 36415; 74176; 80053; 81001; 83690; 85025; 87045; 87086; 87205; 96374; 99285; J0696; J7030; 87075